=== PATIENT | male | born 1980 | race Caucasian/White ===

== ENCOUNTER 2019-09-30 19:53 | Emergency (ER) | payer OTHER ==
[~2019-09-30] VITALS: Ht 195.6 cm; Wt 125.2 kg
[2019-09-30 19:58] VITALS: BP 134/92
[2019-09-30] MEDS ORDERED: KETOROLAC 60 MG/2 ML VIAL IM ONE (20:45)
--- NOTE | 2019-09-30 21:25 | NUR ---
PT TAKEN TO RAD
--- NOTE | 2019-09-30 21:25 | NUR ---
PT TAKEN TO CT VIA WHEELCHAIR
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
--- NOTE | 2019-09-30 21:38 | NUR ---
PT RETURN FROM RAD
[2019-09-30 21:50] VITALS: BP 132/72
== END 2019-09-30 21:50 | disposition home or self-care (01) ==
LOC: MED 19:53
DX: S29.011A Strain of muscle and tendon of front wall of thorax, initial encounter (principal); R03.0 Elevated blood-pressure reading, without diagnosis of hypertension; W22.8XXA Striking against or struck by other objects, initial encounter; Y93.01 Activity, walking, marching and hiking; Y92.89 Other specified places as the place of occurrence of the external cause; Y99.8 Other external cause status
CPT/HCPCS: 71101; 93005; 96372; 99283; J1885

== ENCOUNTER 2020-08-26 14:29 | Emergency (ER) | payer OTHER ==
[~2020-08-26] VITALS: Ht 193 cm; Wt 108.9 kg
[2020-08-26 14:32] VITALS: BP 128/62
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
--- NOTE | 2020-08-26 15:15 | NUR ---
Melany zhou in ED - 08/26/20 at 1535 by [facility] PER JULIETA LOPEZ STATES THAT SHE DOES NOT WANT TO GIVE MEDS FOR PT
--- NOTE | 2020-08-26 15:15 | NUR ---
JULIETA LOPEZ MADE AWARE PT HAS HEADACHE PAIN, PER JULIETA LOPEZ STATES THAT SHE DOES NOT WANT TO GIVE MEDS FOR PT
[2020-08-26] MEDS ORDERED: MECL-303 PO (15:26)
[2020-08-26 15:30] VITALS: BP 128/62
--- NOTE | 2020-08-26 15:30 | NUR ---
Patient discharged with v/s stable. Written and verbal after care instructions about concussion given and explained. Patient alert, oriented and verbalized understanding of instructions. Ambulatory with steady gait. All questions addressed prior to discharge. ID band removed. Patient advised to follow up with PMD. Rx of meclizine given. Patient educated on indication of medication including possible reaction and side effects. Opportunity to ask questions provided and answered.
== END 2020-08-26 15:30 | disposition home or self-care (01) ==
LOC: MED 14:29
DX: S06.0X9A Concussion with loss of consciousness of unspecified duration, initial encounter (principal); W22.8XXA Striking against or struck by other objects, initial encounter; Y93.89 Activity, other specified; Y92.89 Other specified places as the place of occurrence of the external cause; Y99.8 Other external cause status
CPT/HCPCS: 99282

== ENCOUNTER 2021-05-06 09:52 | Emergency (ER) | payer OTHER ==
[~2021-05-06] VITALS: Ht 195.6 cm; Wt 113.4 kg
[~2021-05-06 09:52] MED LIST: MECL-303 PO
[2021-05-06 10:19] VITALS: BP 124/76
[2021-05-06] MEDS: KETOROLAC 30 MG/ML VIAL IM ONE (12:43)
[2021-05-06] MEDS ORDERED: ACET-8386 PO ×2 (12:48→13:25)
[2021-05-06] MEDS ORDERED: NAPR-54 PO ×2 (12:48→13:25)
[2021-05-06] MEDS ORDERED: SULF-59 PO ×2 (12:48→13:25)
[2021-05-06] MEDS ORDERED: CEPH-588 PO ×2 (12:48→13:25)
[2021-05-06 13:30] VITALS: BP 149/97
== END 2021-05-06 13:30 | disposition home or self-care (01) ==
LOC: MED 09:52
DX: L03.211 Cellulitis of face (principal)
CPT/HCPCS: 96372; 99284; J1885

== ENCOUNTER 2022-02-21 22:52 | Emergency (ER) | payer OTHER ==
[~2022-02-21] VITALS: Ht 203.2 cm; Wt 113.4 kg
[~2022-02-21 22:52] MED LIST changes: +ACET-8386 PO; +CEPH-588 PO; +NAPR-54 PO; +SULF-59 PO
[2022-02-21 22:58] VITALS: BP 122/69
--- NOTE | 2022-02-21 23:05 | NUR ---
TO LOBBY FOLLOWING TRIAGE
[2022-02-21] MEDS ORDERED: KETOROLAC 60 MG/2 ML VIAL IM ONE (23:45)
[2022-02-21] MEDS ORDERED: MORPHINE SULFATE 4 MG/ML SYR IM ONE (23:45)
[2022-02-22] MEDS ORDERED: NAPR-54 PO (01:53)
== END 2022-02-22 01:57 | disposition home or self-care (01) ==
LOC: MED 22:52
DX: S33.5XXA Sprain of ligaments of lumbar spine, initial encounter (principal); Z79.899 Other long term (current) drug therapy; X50.9XXA Other and unspecified overexertion or strenuous movements or postures, initial encounter; Y93.89 Activity, other specified; Y92.89 Other specified places as the place of occurrence of the external cause; Y99.8 Other external cause status
CPT/HCPCS: 72110; 96372; 99284; J1885; J2270

== ENCOUNTER 2022-03-28 13:59 | Emergency (ER) | payer OTHER ==
[~2022-03-28] VITALS: Ht 195.6 cm; Wt 117.1 kg
[2022-03-28 14:09] VITALS: BP 111/68
--- NOTE | 2022-03-28 14:15 | NUR ---
BIB SELF C/O 5 RIGHT 5TH FINGER PAIN S/P FALL X 7 WEEKS. PMH: DENIES
[2022-03-28] MEDS ORDERED: IBUP-2213 PO (15:24)
[2022-03-28 15:37] VITALS: BP 116/64
== END 2022-03-28 15:37 | disposition home or self-care (01) ==
LOC: MED 13:59
DX: M79.644 Pain in right finger(s) (principal); Z79.899 Other long term (current) drug therapy
CPT/HCPCS: 73140; 81025; 96361; 96374; 96375; 99283; 99284

== ENCOUNTER 2022-09-17 17:56 | Emergency (ER) | payer OTHER ==
[~2022-09-17] VITALS: Ht 195.6 cm; Wt 117.9 kg
[~2022-09-17 17:56] MED LIST changes: -ACET-8386 PO; +ACET-8905 PO; +IBUP-2213 PO
[2022-09-17 18:01] VITALS: BP 139/83
[2022-09-17] MEDS ORDERED: IBUP-1842 PO (18:55)
[2022-09-17] MEDS ORDERED: CEPH-588 PO (18:55)
--- NOTE | 2022-09-17 19:03 | NUR ---
EXAM BY PROVIDER JESSICA
--- NOTE | 2022-09-17 19:04 | NUR ---
FOR DISCHARGE, PT ON PHONE AND NOT READY
[2022-09-17 19:24] VITALS: BP 139/83
== END 2022-09-17 19:26 | disposition home or self-care (01) ==
LOC: MED 17:56
DX: G62.9 Polyneuropathy, unspecified (principal); Z79.899 Other long term (current) drug therapy; Z79.2 Long term (current) use of antibiotics; Z79.1 Long term (current) use of non-steroidal anti-inflammatories (NSAID)
CPT/HCPCS: 99283

== ENCOUNTER 2023-05-14 17:05 | Emergency (ER) | payer OTHER ==
[~2023-05-14] VITALS: Ht 182.9 cm; Wt 117.9 kg
[~2023-05-14 17:05] MED LIST changes: +IBUP-1842 PO
[2023-05-14 17:18] VITALS: BP 150/103; PULSE 113; RESP 18; TEMP 97.1; O2SAT 97
[2023-05-14 17:51] VITALS: BP 142/96; PULSE 98; RESP 18; TEMP 97.1
[2023-05-14] MEDS ORDERED: NACL 0.9% 1,000 ML IV ONE (19:05)
[2023-05-14 19:22] VITALS: O2SAT 97
[2023-05-14] MEDS ORDERED: HALOPERIDOL IM 5 MG/ML VIAL IM ONE (19:40)
== END 2023-05-14 20:14 ==
LOC: MED 17:05
DX: S09.90XA Unspecified injury of head, initial encounter (principal); F10.129 Alcohol abuse with intoxication, unspecified; Y90.9 Presence of alcohol in blood, level not specified; V49.88XA Car occupant (driver) (passenger) injured in other specified transport accidents, initial encounter; Y93.89 Activity, other specified; Y92.89 Other specified places as the place of occurrence of the external cause; Y99.8 Other external cause status
CPT/HCPCS: 70450; 72125; 99284; J1630